=== PATIENT | male | born 1970 ===

== ENCOUNTER 2017-06-24 00:06 | Observation (INO) | payer MEDICAID ==
[2017-06-24 00:19] VITALS: BMI 60.7
[2017-06-24] MEDS ORDERED: Nitroglycerin 2% Ointment Foilpak UD TOP STA (00:57)
--- NOTE | 2017-06-24 01:05 | ED PDOC ---
Arrival/HPI - General Chief Complaint: Chest Pain Time Seen by Provider: 06/24/17 00:27 Historian: Business Account Leader (Danielle) - History of Present Illness Narrative History of Present Illness (Text): 06/24/17 00:56 47 year old, whose past medical history includes hypertension, hyperlipidemia, diabetes, and stroke, who presents to the Emergency room complaining of left sided chest pain today. Patient reports chest pain radiates to his neck. Patient notes he took his blood pressure at home, noted it to be 148/103. Patient also notes he was seen by his senior oracle soa developer yesterday. Patient states he is compliant with his medications. Patient denies any shortness of breath, cough , fever, nausea, vomiting, diarrhea, back pain, neck pain, or any other complaints. PMD: Dr. Romero Time/Duration: Other (yesterday) Symptom Course: Improving Activities at Onset: Light Context: Home Past Medical History - Provider Review Nursing Documentation Reviewed: Yes - Infectious Disease Hx of Infectious Diseases: None - Tetanus Immunization Tetanus Immunization: Unknown - Cardiac Hx Cardiac Disorders: Yes Hx Congestive Heart Failure: Yes Hx AL: Yes Hx Hypertension: Yes - Pulmonary Hx Respiratory Disorders: No Hx Respiratory Tract Infection: No - Neurological Hx Neurological Disorder: Yes HX Cerebrovascular Accident: Yes (Mar 2014) - HEENT Hx HEENT Disorder: Yes Other/Comment: limited vision related to diabetic neuropathy - Renal Hx Renal Disorder: No - Endocrine/Metabolic Hx Endocrine Disorders: Yes Hx Diabetes Mellitus Type 1: Yes - Hematological/Oncological Hx Blood Disorders: No Other/Comment: "thick blood" - Integumentary Hx Dermatological Disorder: No - Musculoskeletal/Rheumatological Hx Musculoskeletal Disorders: Yes Hx Arthritis: Yes Hx Falls: No Other/Comment: post stroke right leg unable to move below the knee pt. uses cane - Gastrointestinal Hx Gastrointestinal Disorders: No - Genitourinary/Gynecological Hx Genitourinary Disorders: No - Psychiatric Hx Psychophysiologic Disorder: No Hx Depression: No Hx Emotional Abuse: No Hx Physical Abuse: No Hx Substance Use: No - Surgical History Hx Cardiac Catheterization: Yes (Mar 2014) - Anesthesia Hx Anesthesia: Yes Hx Anesthesia Reactions: No Hx Malignant Hyperthermia: No - Suicidal Assessment Feels Threatened In Home Enviroment: No Family/Social History - Physician Review Nursing Documentation Reviewed: Yes Family/Social History: No Known Family HX Smoking Status: Never Smoked Hx Alcohol Use: No Hx Substance Use: No Allergies/Home Meds Allergies/Adverse Reactions: Allergies No Known Allergies Allergy (Verified 06/24/17 00:19) Home Medications: Home Meds Medication Instructions Recorded Confirmed amLODIPine [Norvasc] 10 mg PO DAILY 03/26/14 06/24/17 Metformin HCl [Metformin HCl] 850 tab PO DAILY 05/02/15 06/24/17 Liraglutide [Victoza 2-Mac] 1.8 mg SQ DAILY 07/28/16 06/24/17 Metoprolol Tartrate 50 mg PO BID 07/28/16 06/24/17 Pravastatin Sodium [Pravachol] 40 mg PO DAILY 07/28/16 06/24/17 Insulin Glargine,Hum.rec.anlog 20 units SQ HS 06/24/17 06/24/17 [Gabriela Esparza U-100] Review of Systems - Physician Review All systems were reviewed & negative as marked: Yes - Review of Systems Constitutional: absent: Fatigue, Fevers Respiratory: absent: SOB Cardiovascular: Chest Pain Gastrointestinal: absent: Abdominal Pain, Diarrhea, Nausea, Vomiting Physical Exam Vital Signs Reviewed: Yes Vital Signs Temp Pulse Resp BP Pulse Ox 06/24/17 05:08 74 18 95 06/24/17 00:38 98.8 F 91 H 18 150/83 97 06/24/17 00:19 98.8 F 95 H 18 150/83 97 Temperature: Afebrile Blood Pressure: Normal Pulse: Tachycardic Respiratory Rate: Normal Appearance: Positive for: Well-Appearing, Non-Toxic, Comfortable, Other (Obese male) Pain Distress: None Mental Status: Positive for: Alert and Oriented X 3 - Systems Exam Head: Present: Atraumatic, Normocephalic Pupils: Present: PERRL Extroacular Muscles: Present: EOMI Conjunctiva: Present: Normal Mouth: Present: Moist Mucous Membranes Neck: Present: Normal Range of Motion Respiratory/Chest: Present: Clear to Auscultation, Good Air Exchange. No: Respiratory Distress, Accessory Muscle Use Cardiovascular: Present: Regular Rate and Rhythm, Normal S1, S2. No: Murmurs Abdomen: Present: Normal Bowel Sounds. No: Tenderness, Distention, Peritoneal Signs Back: Present: Normal Inspection Upper Extremity: Present: Normal Inspection. No: Cyanosis, Edema Lower Extremity: Present: Normal Inspection. No: Edema Neurological: Present: GCS=15, CN II-XII Intact, Speech Normal Skin: Present: Warm, Dry, Normal Color. No: Rashes Psychiatric: Present: Alert, Oriented x 3, Normal Insight, Normal Concentration Medical Decision Making ED Course and Treatment: 06/24/17 01:09 Impression: A 47 year old male complaining of chest pain since yesterday. Plan: -- EKG -- Chest X ray -- Labs, cardiac enzymes -- Nitroglycerin -- Reassess and disposition Progress Notes: Reviewed EKG, NSR at [address]pm. LVH. Non-specific ST/T wave changes. 06/24/17 02:30 Reviewed radiology, CXR shows no acute processes. 06/24/17 03:32 Case discussed with spanish medical interpreter substation manager, who is aware and agrees with plan. 06/24/17 04:00 case d/w .Pt. placed on hospitalist service. - Lab Interpretations Lab Results: 06/24/17 01:07 06/24/17 01:07 Lab Results 06/24/17 01:07: Free T4 0.97, TSH 3rd Generation 3.28 06/24/17 01:07: Triglycerides 156, Cholesterol 122 L, LDL Cholesterol Direct 70 , HDL Cholesterol 31 06/24/17 01:07: WBC 9.0, RBC 4.65, Hgb 13.9 L, Hct 40.4 L, MCV 86.9, MCH 29.9, MCHC 34.4, RDW 13.9, Plt Count 197, MPV 10.5 06/24/17 01:07: Sodium 141, Potassium 3.2 L, Chloride 102, Carbon Dioxide 29, Anion Gap 12, BUN 15, Creatinine 0.8, Est GFR ( Amer) > 60, Est GFR (Non- Af Amer) > 60, Random Glucose 130 H, Calcium 9.0, Total Bilirubin 0.5, AST 38, ALT 51, Alkaline Phosphatase 127 H, Lactate Dehydrogenase 585, Total Creatine Kinase 213, Troponin I < 0.01, Total Protein 7.4, Albumin 3.9, Globulin 3.5, Albumin/Globulin Ratio 1.1 06/24/17 01:07: PT 11.8, INR 1.08, APTT 35.7 I have reviewed the lab results: Yes - RAD Interpretation Radiology Orders: 06/24/17 00:56 CHEST PORTABLE [RAD] Stat Courtesy Van Driver: ED Physician - EKG Interpretation Interpreted by ED Physician: Yes Type: 12 lead EKG - Medication Orders Current Medication Orders: Acetaminophen (Tylenol 325mg Tab) 650 mg PO Q6H PRN PRN Reason: Headache Last Admin: 06/24/17 06:04 Dose: 650 mg MAR Pain/Vitals Document 06/24/17 06:04 SRE (Rec: 06/24/17 06:05 SRE [id number]) Pain Reassessment Is This A Pain ReAssessment? No Sleep Is patient sleeping during reassessment? No Presence of Pain Presence of Pain Yes Pain Scale Used Pain Scale Used Numeric Location Pain Location [facility] Description Acute Intensity 7 Scale Used Numeric Amlodipine Besylate (Norvasc) 10 mg PO DAILY SWATI Apixaban (Eliquis) 5 mg PO BID SWATI PRN Reason: Protocol Aspirin (Ecotrin) 81 mg PO DAILY SWATI Atorvastatin Calcium (Lipitor) 80 mg PO DIN [facility] Sodium Chloride (Sodium Chloride 0.9%) 1,000 mls @ 100 mls/hr IV .Q10H SWATI Last Admin: 06/24/17 06:05 Dose: 100 mls/hr eMAR Start Stop Document 06/24/17 06:05 SRE (Rec: 06/24/17 06:06 SRE [id number]) Intravenous Solution Start Date 06/24/17 Start Time 06:06 Insulin Human Lispro (Humalog Low) 0 units SC ACHS SWATI PRN Reason: Protocol Metoprolol Tartrate (Lopressor) 50 mg PO BID [facility] Morphine Sulfate (Morphine) 1 mg IVP Q4H PRN PRN Reason: Pain, moderate (4-7) Nitroglycerin (Nitrostat Sl Tab) 0.4 mg SL Q5M PRN PRN Reason: Chest Pain Pantoprazole Sodium (Protonix Inj) 40 mg IVP DAILY SWATI Discontinued Medications Nitroglycerin (Nitro-Bid 2% Oint) 1 ea TOP ONCE STA Stop: 06/24/17 00:58 Last Admin: 06/24/17 01:09 Dose: 1 ea Potassium Chloride (K-Dur 20 Meq Er Tab) 20 meq PO STAT STA Stop: 06/24/17 01:37 Last Admin: 06/24/17 01:47 Dose: 20 meq - Scribe Statement Liliane Landon under supervision of Cynthia Eubanks Provider Scribe Attestation: All medical record entries made by the Scribe were at my direction and personally dictated by me. I have reviewed the chart and agree that the record accurately reflects my personal performance of the history, physical exam, medical decision making, and the department course for this patient. I have also personally directed, reviewed, and agree with the discharge instructions and disposition. Disposition/Present on Arrival - Present on Arrival Any Indicators Present on Arrival: No History of DVT/PE: No History of Uncontrolled Diabetes: No Urinary Catheter: No History of Decub. Ulcer: No History Surgical Site Infection Following: None - Disposition Have Diagnosis and Disposition been Completed?: Yes Diagnosis: Chest pain Disposition: HOSPITALIZED Disposition Time: 03:30 Patient Problems: Current Active Problems Problem Status Onset Chest pain Acute Condition: STABLE
[2017-06-24 01:27] LABS: HEMATOCRIT 40.4 % (42.0-52.0); MEAN CELL VOLUME 86.9 fl (80.0-105.0); MEAN CORPUSCULAR HEMOGLOBIN 29.9 pg (25.0-35.0); MEAN CORPUSCULAR HGB CONC 34.4 g/dl (31.0-37.0); MEAN PLATELET VOLUME 10.5 fl (7.0-11.0); RED CELL DISTRIBUTION WIDTH 13.9 % (11.5-14.5)
[2017-06-24 01:31] LABS: ALB/GLOB RATIO 1.1 (1.1-1.8); ALKALINE PHOSPHATASE 127 U/L (38-126); ALT/SGPT 51 U/L (7-56); AST/SGOT 38 U/L (17-59); BILIRUBIN,TOTAL 0.5 mg/dL (0.2-1.3); BLOOD UREA NITROGEN 15 mg/dL (7-21); CARBON DIOXIDE 29 mmol/L (21-33); CHLORIDE 102 mmol/L (98-107); GFR AFRICAN-AMERICAN > 60; GLUCOSE,RANDOM 130 mg/dL (70-110); POTASSIUM 3.2 mmol/L (3.6-5.0); SODIUM 141 mmol/L (132-148); TOTAL PROTEIN 7.4 g/dL (5.8-8.3)
[2017-06-24 01:36] LABS: INR 1.08 (0.93-1.08); PARTIAL THROMBOPLASTIN TIME 35.7 Seconds (25.1-36.5)
[2017-06-24] MEDS ORDERED: Potassium Chloride 20 mEq ER Tab PO STA (01:36)
[2017-06-24 01:43] LABS: TROPONIN I < 0.01 ng/mL
[2017-06-24] MEDS ORDERED: Morphine 2 mg/ml ISec IVP PRN (04:21)
--- NOTE | 2017-06-24 04:32 | CP.PCM.HP ---
<Lexy Rausch - Last Filed: 06/24/17 05:14> History of Present Illness - History of Present Illness History of Present Illness: CC: "My pressure was high" HPI: Patient is a 47 year old male with past medical hx of HTN, HLD, DM, paraoxysmal afib on Eliquis, gastritis, CVA in 2013 with L LE residual weakness presents to the ED for elevated blood pressure and chest pain. Patient states that he was home when he checked his blood pressure, it was noted to be 148/ 103. He also states that he was having mid sternal chest pain that radiates to the Left side of his neck. Reports that chest pain is intermittent and sharp in nature. Rates the pain a 7/10 on pain scale. States that he was feeling "hot" but denies diaphoresis. Currently reports that chest pain has resolved, and admits to having a headache and foggy vision. Denies fevers, chills, changes in hearing, palpitations, sob, abdominal pain, urinary symptoms, changes in bowel habits. Patient states that he sees Dr Finley as his mergers and acquisitions consultant, last saw him today in the office. States that last stress test was in 2015 and he was told that it was normal. ED Course: Nitro 2%, K dur 20 meq PMD: Dr Romreo Energy Broker: Dr Finley Allergies: NKDA Medications: Metoprolol 50mg BID, Amlodipine 10mg, Metformin 850mg, Pravastatin 40mg, ASA 81mg, Victoza 1.8mg, Eliquis 5mg BID, Insulin Medical Hx: HTN, HLD, DM, CVA with L LE residual weakness, paroxysmal afib on Eliquis, gastritis Surgical Hx: Denies Social Hx: Denies alcohol, tobacco, drug use; ambulates with a cane; with 3 children Family Hx: Father - Heart surgery, Prostate CA; Mother - Heart surgery, HTN, DM Present on Admission - Present on Admission Any Indicators Present on Admission: No Review of Systems - Review of Systems All systems: reviewed and no additional remarkable complaints except - Constitutional Constitutional: Headache. absent: Chills, Fever - EENT Eyes: Blurred Vision Ears: absent: Dizziness - Cardiovascular Cardiovascular: Chest Pain. absent: Dyspnea, Edema, Lightheadedness, Palpitations, Syncope - Respiratory Respiratory: absent: Cough, Dyspnea, Wheezing - Gastrointestinal Gastrointestinal: absent: Abdominal Pain, Constipation, Diarrhea, Dyspepsia, Nausea, Vomiting - Genitourinary Genitourinary: absent: Dysuria - Musculoskeletal Musculoskeletal: absent: Back Pain, Numbness, Tingling - Neurological Neurological: Headaches. absent: Abnormal Hearing, Dizziness, Tingling Past Patient History - Infectious Disease Hx of Infectious Diseases: None - Tetanus Immunizations Tetanus Immunization: Unknown - Past Medical History & Family History Past Medical History?: Yes - Past Social History Smoking Status: Never Smoked - CARDIAC Hx Cardiac Disorders: Yes Hx Congestive Heart Failure: Yes Hx Heart Attack: Yes Hx Hypertension: Yes - PULMONARY Hx Respiratory Disorders: No Hx Respiratory Tract Infection: No - NEUROLOGICAL Hx Neurological Disorder: Yes HX Cerebrovascular Accident: Yes (Mar 2014) - HEENT Hx HEENT Problems: Yes Other/Comment: limited vision related to diabetic neuropathy - RENAL Hx Chronic Kidney Disease: No - ENDOCRINE/METABOLIC Hx Endocrine Disorders: Yes Hx Diabetes Mellitus Type 1: Yes - HEMATOLOGICAL/ONCOLOGICAL Hx Blood Disorders: No Other/Comment: "thick blood" - INTEGUMENTARY Hx Dermatological Problems: No - MUSCULOSKELETAL/RHEUMATOLOGICAL Hx Musculoskeletal Disorders: Yes Hx Arthritis: Yes Hx Falls: No Other/Comment: post stroke right leg unable to move below the knee pt. uses cane - GASTROINTESTINAL Hx Gastrointestinal Disorders: No - GENITOURINARY/GYNECOLOGICAL Hx Genitourinary Disorders: No - PSYCHIATRIC Hx Psychophysiologic Disorder: No Hx Depression: No Hx Emotional Abuse: No Hx Physical Abuse: No Hx Substance Use: No - SURGICAL HISTORY Hx Cardiac Catheterization: Yes (Mar 2014) - ANESTHESIA Hx Anesthesia: Yes Hx Anesthesia Reactions: No Hx Malignant Hyperthermia: No Meds Allergies/Adverse Reactions: Allergies Allergy/AdvReac Type Severity Reaction Status Date / Time No Known Allergies Allergy Verified 06/24/17 00:19 Physical Exam - Constitutional Appears: Well, No Acute Distress Additional comments: Obese - Head Exam Head Exam: ATRAUMATIC, NORMAL INSPECTION - Eye Exam Eye Exam: EOMI, Normal appearance, PERRL Pupil Exam: NORMAL ACCOMODATION - ENT Exam ENT Exam: Mucous Membranes Moist - Neck Exam Neck exam: Positive for: Full Rom - Respiratory Exam Respiratory Exam: Clear to Auscultation Bilateral, NORMAL BREATHING PATTERN. absent: Decreased Breath Sounds, Rhonchi, Wheezes, Respiratory Distress - Cardiovascular Exam Cardiovascular Exam: REGULAR RHYTHM, +S1, +S2. absent: Tachycardia, Systolic Murmur - GI/Abdominal Exam GI & Abdominal Exam: Normal Bowel Sounds, Soft. absent: Guarding, Rebound, Rigid, Tenderness Additional comments: +Umbilical hernia - Extremities Exam Extremities exam: Positive for: calf tenderness (Negative Homans sign), normal inspection, pedal pulses present Additional comments: Left Lower Extremity Muscle Strength : 1/5 Right Lower Extremity Muscle Strength : 5/5 Upper Extremity Muscle Strength B/L : 5/5 - Back Exam Back exam: NORMAL INSPECTION - Neurological Exam Neurological exam: Alert, Oriented x3 - Psychiatric Exam Psychiatric exam: Normal Affect, Normal Mood - Skin Skin Exam: Dry, Normal Color, Warm Results - Vital Signs Recent Vital Signs: Last Vital Signs Temp 98.8 F 06/24/17 00:38 Pulse 91 H 06/24/17 00:38 Resp 18 06/24/17 00:38 BP 150/83 06/24/17 00:38 Pulse Ox 97 06/24/17 00:38 - Labs Result Diagrams: 06/24/17 01:07 06/24/17 01:07 Assessment & Plan - Assessment and Plan (Free Text) Assessment: 47 year old male with past medical hx of HTN, HLD, DM, CVA in 2013 with L LE residual weakness presents to the ED for elevated blood pressure and chest pain Plan: 1. Chest Pain r/o ACS -Stable, afebrile -Place on observation, monitor on telemetry -Currently asymptomatic -EKG on admission reviewed -Trend EKG Q8H x 2 -Initial Troponin <0.01, trend troponins Q8H x 2 -F/U am labs, TSH, free T4 -Continue ASA 81mg daily -Morphine 1mg Q4H prn pain, Nitroglycerin 0.4mg SL prn chest pain -Diet : NPO except medications -Echo ordered -Last Echo in 2013 showed LVH with normal LVEF, mild TR, no pulmonary HTN -States that he had a negative stress test last year -Supplemental O2 prn -Cardiology consulted, f/u recommendations 2. Hypokalemia -Potassium 3.2 on admission -Received K dur 20 meq in ED -Monitor CMP and replete as needed 3. History of Hypertension -Continue Metoprolol 50mg BID -Continue Norvasc 10mg daily -Monitor BPs closely 4. History of Diabetes Mellitus -Low dose Insulin sliding scale -Accuchecks ACHS -F/U hgA1C -Will hold Metformin at this time 5. History of Dyslipidemia -Lipitor 80mg daily -F/U lipid panel 6. History of Paraoxysmal Afib -Currently in NSR -Continue Eliquis 5mg BID 7. History of CVA with Left LE residual weakness -Continue ASA 81mg daily -Eliquis 5mg BID -Fall precautions 8. B/L Calf tenderness -LE venous dopplers ordered 9. Morbid Obesity -Advise weight loss GI/DVT ppx -Protonix 40mg IVP daily -Eliquis 5mg BID <Areli LUCIA,Arben - Last Filed: 06/24/17 08:52> Results - Vital Signs Recent Vital Signs: Last Vital Signs Temp 98.4 F 06/24/17 07:14 Pulse 74 06/24/17 07:14 Resp 20 06/24/17 08:25 BP 103/59 L 06/24/17 07:14 Pulse Ox 94 L 06/24/17 07:14 - Labs Result Diagrams: 06/24/17 08:30 06/24/17 01:07 Labs: Laboratory Results - last 24 hr 06/24/17 08:30 WBC 7.8 RBC 4.55 Hgb 13.4 L Hct 39.4 L MCV 86.6 MCH 29.5 MCHC 34.0 RDW 13.7 Plt Count 182 MPV 10.2 Gran % 59.9 Lymph % (Auto) 25.0 [place] % (Auto) 13.3 H Eos % (Auto) 1.5 Baso % (Auto) 0.3 Gran # 4.65 Lymph # 1.9 [place] # 1.0 H Eos # 0.1 Baso # 0.02 Attending/Attestation - Attestation I have personally seen and examined this patient.: Yes I have fully participated in the care of the patient.: Yes I have reviewed all pertinent clinical information: Yes Notes (Text): -I agree with the above H&P completed by the resident physician.
[2017-06-24 05:01] LABS: CHOLESTEROL 122 mg/dL (130-200)
[2017-06-24 05:03] LABS: FREE T4 0.97 ng/dL (0.78-2.19)
[2017-06-24 05:17] LABS: THYROID STIMULATING HORMONE 3.28 mIU/mL (0.46-4.68)
[2017-06-24] MEDS ORDERED: Sodium Chloride 0.9% 1,000 ML IV SCH (05:30)
[2017-06-24 07:15] VITALS: O2SAT 94
[2017-06-24] MEDS: Insulin Lispro (humaLOG) LOW Coverage SC SCH ×3 (08:23→16:58)
[2017-06-24 08:37] LABS: BASO # 0.02 K/mm3 (0.0-2.0); BASO % 0.3 % (0.0-3.0); EOS # 0.1 (0.0-0.7); EOS % 1.5 % (1.5-5.0); GRAN # 4.65 (1.4-6.5); GRAN % 59.9 % (50.0-68.0); HEMATOCRIT 39.4 % (42.0-52.0); LYMPH # 1.9 (1.2-3.4); MEAN CELL VOLUME 86.6 fl (80.0-105.0); MEAN CORPUSCULAR HEMOGLOBIN 29.5 pg (25.0-35.0); MEAN PLATELET VOLUME 10.2 fl (7.0-11.0); MONO % 13.3 % (1.0-6.0); RED CELL DISTRIBUTION WIDTH 13.7 % (11.5-14.5); WHITE BLOOD COUNT 7.8 10^3/ul (4.5-11.0)
--- NOTE | 2017-06-24 08:44 | RAD ---
HISTORY: chest pain COMPARISON: 07/28/2016 FINDINGS: LUNGS: The lungs are well inflated and clear. There is mild pulmonary venous congestion. PLEURA: No significant pleural effusion identified, no pneumothorax apparent. CARDIOVASCULAR: There is persistent mild cardiomegaly. OSSEOUS STRUCTURES: No significant abnormalities. VISUALIZED UPPER ABDOMEN: Normal. OTHER FINDINGS: None. IMPRESSION: No active pulmonary disease. Persistent mild cardiomegaly and pulmonary venous congestion
[2017-06-24 08:57] LABS: ALB/GLOB RATIO 1.1 (1.1-1.8); ALKALINE PHOSPHATASE 106 U/L (38-126); ALT/SGPT 42 U/L (7-56); AST/SGOT 30 U/L (17-59); BILIRUBIN,TOTAL 0.6 mg/dL (0.2-1.3); BLOOD UREA NITROGEN 13 mg/dL (7-21); CALCIUM 8.6 mg/dL (8.4-10.5); CARBON DIOXIDE 29 mmol/L (21-33); CHLORIDE 104 mmol/L (98-107); GFR AFRICAN-AMERICAN > 60; GLUCOSE,RANDOM 137 mg/dL (70-110); MAGNESIUM 1.9 mg/dL (1.7-2.2); PHOSPHOROUS 3.6 mg/dL (2.5-4.5); POTASSIUM 3.1 mmol/L (3.6-5.0); SODIUM 140 mmol/L (132-148); TOTAL PROTEIN 6.8 g/dL (5.8-8.3)
[2017-06-24 08:59] LABS: TROPONIN I < 0.01 ng/mL
[2017-06-24] MEDS ORDERED: Potassium Chloride 20 mEq ER Tab PO ONE (09:02)
[2017-06-24] MEDS ORDERED: Enoxaparin 40 mg Syringe SC SCH (10:00)
[2017-06-24] MEDS ORDERED: Iodixanol 320 mg/ml 150 ml Bottle IV ONE (12:55)
--- NOTE | 2017-06-24 13:02 | CARD ---
APPROVED REPORT EXAM: Two-dimensional and M-mode echocardiogram with Doppler and color Doppler. INDICATION Chest Pain 2D DIMENSIONS IVSd1.6 (0.7-1.1cm)LVDd4.4 (3.9-5.9cm) PWd1.4 (0.7-1.1cm)LVDs3.2 (2.5-4.0cm) FS (%) 27.8 %LVEF (%)54.1 (>50%) M-Mode DIMENSIONS Aortic Root4.00 (2.2-3.7cm)Aortic Cusp Exc.2.20 (1.5-2.0cm) Aortic Valve AoV Peak Equbsgcm426.0cm/Blade Peak GR.7mmHg Mitral Valve E/A ratio0.0 TDI E/Lateral E'0.0E/Medial E'0.0 Pulmonary Valve PV Peak Prdfgnzz218.0cm/sPV Peak Grad.4mmHg Tricuspid Valve TR Peak [id number]/sRAP [id number] Peak Gr.16mmHg [id number] LEFT VENTRICLE The left ventricle is normal size. There is mild concentric left ventricular hypertrophy. The left ventricular function is normal. The left ventricular ejection fraction is within the normal range. There is normal LV segmental wall motion. Transmitral Doppler flow pattern is Grade I-abnormal relaxation pattern. RIGHT VENTRICLE The right ventricle is normal size. There is normal right ventricular wall thickness. The right ventricular systolic function is normal. ATRIA The left atrium size is normal. The right atrium size is normal. AORTIC VALVE The aortic valve is normal in structure. No aortic regurgitation is present. MITRAL VALVE The mitral valve is normal in structure. There is no mitral valve regurgitation noted. TRICUSPID VALVE The tricuspid valve is normal in structure. There is no pulmonary hypertension. GREAT VESSELS The aortic root is mildly enlarged. The IVC is normal in size and collapses >50% with inspiration. <Conclusion> The left ventricle is normal size. There is mild concentric left ventricular hypertrophy. The left ventricular function is normal. The left ventricular ejection fraction is within the normal range. There is normal LV segmental wall motion. Transmitral Doppler flow pattern is Grade I-abnormal relaxation pattern. a PFO is noted
--- NOTE | 2017-06-24 14:27 | CT ---
PROCEDURE: CT Chest with contrast (Pulmonary Angiogram) HISTORY: R/O PE COMPARISON: None available. TECHNIQUE: Axial computed tomography images were obtained of the chest in the pulmonary arterial phase of enhancement. Coronal and sagittal reformatted images were created and reviewed. Intravenous contrast dose: 150 cc of Visipaque Radiation dose: Total exam DLP = 857 mGy-cm. This CT exam was performed using one or more of the following dose reduction techniques: Automated exposure control, adjustment of the mA and/or kV according to patient size, and/or use of iterative reconstruction technique. FINDINGS: PULMONARY ARTERIES: Unremarkable. No pulmonary embolism. AORTA: No acute findings. No thoracic aortic aneurysm. LUNGS: Unremarkable. No nodule, mass or pulmonary consolidation. PLEURAL SPACES: Unremarkable. No effusion or pneuomothorax. HEART: Unremarkable. No cardiomegaly. No significant pericardial effusion. LYMPH NODES: No lymphadenopathy. BONES, CHEST WALL: Unremarkable. No fracture or destructive lesion OTHER FINDINGS: There is severe fatty infiltration of the liver IMPRESSION: No evidence of pulmonary embolus. Severe fatty infiltration of the liver
--- NOTE | 2017-06-24 15:38 | US ---
HISTORY: Leg pain and swelling. Evaluate for DVT PHYSICIAN(S): Trell Finney MD. TECHNIQUE: Duplex sonography and color-flow Doppler with graded compression were used to evaluate the deep venous systems of both lower extremities. FINDINGS: There appears to be some adherent chronic nonocclusive thrombus in the right common femoral vein. The right femoral vein, proximal right profunda femoral vein, right popliteal vein, and visualized right tibial veins are normal and compressible. 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
[2017-06-24 17:26] VITALS: BP 132/85
[2017-06-24 17:44] VITALS: PULSE 67; RESP 16; TEMP 98.6
--- NOTE | 2017-06-24 21:10 | CP.PCM.DIS ---
<Jorge Bedolla - Last Filed: 06/25/17 03:23> Provider - Provider Date of Admission: 06/24/17 03:25 Attending physician: Tamara Mays MD Primary care physician: NO PRIMARY CARE PROVIDER Time Spent in preparation of Discharge (in minutes): 45 Hospital Course - Lab Results Lab Results: Most Recent Lab Values WBC 7.8 10^3/ul (4.5-11.0) 06/24/17 08:30 RBC 4.55 10^6/uL (3.5-6.1) 06/24/17 08:30 Hgb 13.4 g/dL (14.0-18.0) L 06/24/17 08:30 Hct 39.4 % (42.0-52.0) L 06/24/17 08:30 MCV 86.6 fl (80.0-105.0) 06/24/17 08:30 MCH 29.5 pg (25.0-35.0) 06/24/17 08:30 MCHC 34.0 g/dl (31.0-37.0) 06/24/17 08:30 RDW 13.7 % (11.5-14.5) 06/24/17 08:30 Plt Count 182 10^3/uL (120.0-450.0) 06/24/17 08:30 MPV 10.2 fl (7.0-11.0) 06/24/17 08:30 Gran % 59.9 % (50.0-68.0) 06/24/17 08:30 Lymph % (Auto) 25.0 % (22.0-35.0) 06/24/17 08:30 [place] % (Auto) 13.3 % (1.0-6.0) H 06/24/17 08:30 Eos % (Auto) 1.5 % (1.5-5.0) 06/24/17 08:30 Baso % (Auto) 0.3 % (0.0-3.0) 06/24/17 08:30 Gran # 4.65 (1.4-6.5) 06/24/17 08:30 Lymph # 1.9 (1.2-3.4) 06/24/17 08:30 [place] # 1.0 (0.1-0.6) H 06/24/17 08:30 Eos # 0.1 (0.0-0.7) 06/24/17 08:30 Baso # 0.02 K/mm3 (0.0-2.0) 06/24/17 08:30 PT 11.8 SECONDS (9.4-12.5) 06/24/17 01:07 INR 1.08 (0.93-1.08) 06/24/17 01:07 APTT 35.7 Seconds (25.1-36.5) 06/24/17 01:07 Sodium 140 mmol/L (132-148) 06/24/17 08:30 Potassium 3.1 mmol/L (3.6-5.0) L 06/24/17 08:30 Chloride 104 mmol/L (98-107) 06/24/17 08:30 Carbon Dioxide 29 mmol/L (21-33) 06/24/17 08:30 Anion Gap 10 (10-20) 06/24/17 08:30 BUN 13 mg/dL (7-21) 06/24/17 08:30 Creatinine 0.8 mg/dl (0.8-1.5) 06/24/17 08:30 Est GFR ( Amer) > 60 06/24/17 08:30 Est GFR (Non-Af Amer) > 60 06/24/17 08:30 Random Glucose 137 mg/dL (70-110) H 06/24/17 08:30 Hemoglobin A1c 7.7 % (4.2-6.5) H D 06/24/17 01:07 Calcium 8.6 mg/dL (8.4-10.5) 06/24/17 08:30 Phosphorus 3.6 mg/dL (2.5-4.5) 06/24/17 08:30 Magnesium 1.9 mg/dL (1.7-2.2) 06/24/17 08:30 Total Bilirubin 0.6 mg/dL (0.2-1.3) 06/24/17 08:30 AST 30 U/L (17-59) 06/24/17 08:30 ALT 42 U/L (7-56) 06/24/17 08:30 Alkaline Phosphatase 106 U/L (38-126) 06/24/17 08:30 Lactate Dehydrogenase 585 U/L (333-699) 06/24/17 01:07 Total Creatine Kinase 213 U/L (35-230) 06/24/17 01:07 Troponin I < 0.01 ng/mL 06/24/17 16:50 Total Protein 6.8 g/dL (5.8-8.3) 06/24/17 08:30 Albumin 3.6 g/dL (3.0-4.8) 06/24/17 08:30 Globulin 3.2 gm/dL 06/24/17 08:30 Albumin/Globulin Ratio 1.1 (1.1-1.8) 06/24/17 08:30 Triglycerides 156 mg/dL (35-160) 06/24/17 01:07 Cholesterol 122 mg/dL (130-200) L 06/24/17 01:07 LDL Cholesterol Direct 70 mg/dL (0-129) 06/24/17 01:07 HDL Cholesterol 31 mg/dL (29-60) 06/24/17 01:07 Free T4 0.97 ng/dL (0.78-2.19) 06/24/17 01:07 TSH 3rd Generation 3.28 mIU/mL (0.46-4.68) 06/24/17 01:07 - Hospital Course Hospital Course: Mr. 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 Patient states that he was home when he checked his blood pressure, it was noted to be 148/ 103. He also states that he was having mid sternal chest pain that radiates to the Left side of his neck. Reports that chest pain is intermittent and sharp in nature. Rates the pain a 7/10 on pain scale. States that he was feeling "hot" but denies diaphoresis. Currently reports that chest pain has resolved, and admits to having a headache and foggy vision. Denies fevers, chills, changes in hearing, palpitations, sob, abdominal pain, urinary symptoms, changes in bowel habits. 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 States that last stress test was in 2016 and he was told that it was normal. In ED , pt was given Nitro 2%, K dur Patient was tarnsferred to telemetry for monitoring. Pt states that he has been on the Eliquis for 3-4 months but unsure if he had a clot at that time. HE states that in 2005, He had an GA for which he received a cath in [place]. in @014, he had a CVA in [place] and thinks they put a catheter of some sort in his R groin but cannot remember if it was to dissolve a clot in his legs, heart or brain. Cardiology was consulted. Troponin negative x3. Echo was done and showed EF 54%, with no PFO to explained the CVA at such a young age. LE US was done and showed chornic, adherent non-occlusive thrombus in R common femoral vein. CTA Chest was done and showed no evidence of pulm embolus, but was +for severe fatty infiltration of liver. Per Cardio recs, pt to continue ASA , Lipitor, and Lopressor. Patient will follow up with Dr. Finley and Dr. Romero. Will take Eliquis 10mg BID for 7 days then continue his regimen of 5mg BID. will continue Norvasc 10mg daily and Metoprolol 50mg BID. Will start HYdralazine PRN if SBP >140. will hold metformin for 2 days to avoid added injury to contrast -induced kidney injury, then continue it as normal. Will also plan for outpatient sleep study. Patient was educated about diet modifications and need for lifestyle changes/ weight loss however patient fears that when he walks, he gets hypertensive. - Date & Time of H&P Date of H&P: 06/24/17 Time of H&P: 04:24 Discharge Exam - Head Exam Head Exam: ATRAUMATIC, NORMAL INSPECTION - Eye Exam Eye Exam: EOMI, Normal appearance, PERRL Pupil Exam: NORMAL ACCOMODATION - ENT Exam ENT Exam: Mucous Membranes Moist - Neck Exam Neck exam: Normal Inspection - Respiratory Exam Respiratory Exam: Clear to PA & Lateral, NORMAL BREATHING PATTERN. absent: Rhonchi, Wheezes, Respiratory Distress - Cardiovascular Exam Cardiovascular Exam: RRR, +S1, +S2. absent: Gallop, JVD, Rubs, Systolic Murmur - GI/Abdominal Exam GI & Abdominal Exam: Normal Bowel Sounds, Soft, Unremarkable. absent: Distended , Tenderness Additional comments: morbidly obese body habitus - Extremities Exam Extremities exam: full ROM, pedal edema, pedal pulses present - Back Exam Back exam: NORMAL INSPECTION - Neurological Exam Neurological exam: Alert, Oriented x3 - Psychiatric Exam Psychiatric exam: Normal Affect, Normal Mood - Skin Skin Exam: Dry, Normal Color, Warm - Additional Findings Additional findings: Slovak speaking only Discharge Plan - Discharge Medications Prescriptions: Apixaban [Eliquis] 10 mg PO BID #14 tab hydrALAZINE [Apresoline] 25 mg PO BID PRN #30 tab PRN Reason: Systolic Blood Pressure - Follow Up Plan Condition: STABLE Disposition: HOME/ ROUTINE Instructions: Angina (DC), Chest Pain (DC), Sleep Apnea (DC), Low Fat Diet (DC) , Heart Healthy Diet (DC), Cholesterol and Your Health (GEN), Lipid Profile (GEN ) Additional Instructions: - please take Eliquis 10mg twice daily for 7 days then take 5mg twice daily moving forward for your chronic clot - please continue your Norvasc 10mg daily and Metoprolol 50mg twice daily - please start taking Hydralazine 25mg BID PRN if SBP > 140 - DO NOT take Metformin for 2 days then restart as normal - please follow up with Dr. Finley within 2 weeks who will adjust your meds. - please follow up with an outpatient sleep study Referrals: Regan Finley MD [Medical Doctor] - PCP,NO [Primary Care Provider] - <Tamara Mays - Last Filed: 06/25/17 15:55> Provider - Provider Date of Admission: 06/24/17 03:25 Attending physician: Tamara Mays MD Primary care physician: NO PRIMARY CARE PROVIDER Hospital Course - Lab Results Lab Results: Most Recent Lab Values WBC 7.8 10^3/ul (4.5-11.0) 06/24/17 08:30 RBC 4.55 10^6/uL (3.5-6.1) 06/24/17 08:30 Hgb 13.4 g/dL (14.0-18.0) L 06/24/17 08:30 Hct 39.4 % (42.0-52.0) L 06/24/17 08:30 MCV 86.6 fl (80.0-105.0) 06/24/17 08:30 MCH 29.5 pg (25.0-35.0) 06/24/17 08:30 MCHC 34.0 g/dl (31.0-37.0) 06/24/17 08:30 RDW 13.7 % (11.5-14.5) 06/24/17 08:30 Plt Count 182 10^3/uL (120.0-450.0) 06/24/17 08:30 MPV 10.2 fl (7.0-11.0) 06/24/17 08:30 Gran % 59.9 % (50.0-68.0) 06/24/17 08:30 Lymph % (Auto) 25.0 % (22.0-35.0) 06/24/17 08:30 [place] % (Auto) 13.3 % (1.0-6.0) H 06/24/17 08:30 Eos % (Auto) 1.5 % (1.5-5.0) 06/24/17 08:30 Baso % (Auto) 0.3 % (0.0-3.0) 06/24/17 08:30 Gran # 4.65 (1.4-6.5) 06/24/17 08:30 Lymph # 1.9 (1.2-3.4) 06/24/17 08:30 [place] # 1.0 (0.1-0.6) H 06/24/17 08:30 Eos # 0.1 (0.0-0.7) 06/24/17 08:30 Baso # 0.02 K/mm3 (0.0-2.0) 06/24/17 08:30 PT 11.8 SECONDS (9.4-12.5) 06/24/17 01:07 INR 1.08 (0.93-1.08) 06/24/17 01:07 APTT 35.7 Seconds (25.1-36.5) 06/24/17 01:07 Sodium 140 mmol/L (132-148) 06/24/17 08:30 Potassium 3.1 mmol/L (3.6-5.0) L 06/24/17 08:30 Chloride 104 mmol/L (98-107) 06/24/17 08:30 Carbon Dioxide 29 mmol/L (21-33) 06/24/17 08:30 Anion Gap 10 (10-20) 06/24/17 08:30 BUN 13 mg/dL (7-21) 06/24/17 08:30 Creatinine 0.8 mg/dl (0.8-1.5) 06/24/17 08:30 Est GFR ( Amer) > 60 06/24/17 08:30 Est GFR (Non-Af Amer) > 60 06/24/17 08:30 Random Glucose 137 mg/dL (70-110) H 06/24/17 08:30 Hemoglobin A1c 7.7 % (4.2-6.5) H D 06/24/17 01:07 Calcium 8.6 mg/dL (8.4-10.5) 06/24/17 08:30 Phosphorus 3.6 mg/dL (2.5-4.5) 06/24/17 08:30 Magnesium 1.9 mg/dL (1.7-2.2) 06/24/17 08:30 Total Bilirubin 0.6 mg/dL (0.2-1.3) 06/24/17 08:30 AST 30 U/L (17-59) 06/24/17 08:30 ALT 42 U/L (7-56) 06/24/17 08:30 Alkaline Phosphatase 106 U/L (38-126) 06/24/17 08:30 Lactate Dehydrogenase 585 U/L (333-699) 06/24/17 01:07 Total Creatine Kinase 213 U/L (35-230) 06/24/17 01:07 Troponin I < 0.01 ng/mL 06/24/17 16:50 Total Protein 6.8 g/dL (5.8-8.3) 06/24/17 08:30 Albumin 3.6 g/dL (3.0-4.8) 06/24/17 08:30 Globulin 3.2 gm/dL 06/24/17 08:30 Albumin/Globulin Ratio 1.1 (1.1-1.8) 06/24/17 08:30 Triglycerides 156 mg/dL (35-160) 06/24/17 01:07 Cholesterol 122 mg/dL (130-200) L 06/24/17 01:07 LDL Cholesterol Direct 70 mg/dL (0-129) 06/24/17 01:07 HDL Cholesterol 31 mg/dL (29-60) 06/24/17 01:07 Free T4 0.97 ng/dL (0.78-2.19) 06/24/17 01:07 TSH 3rd Generation 3.28 mIU/mL (0.46-4.68) 06/24/17 01:07 Attending/Attestation - Attestation I have personally seen and examined this patient.: Yes I have fully participated in the care of the patient.: Yes I have reviewed all pertinent clinical information, including history, physical exam and plan: Yes Notes (Text): 06/25/17 15:51 Attending note; Patient seen and examined with the resident. Patient is a 47-year-old morbidly obese male with a history of previous CVA, ? GA is admitted with high blood pressure and chest pain. Cardiac enzymes negative. Echocardiogram normal. Patient was evaluated by cardiology Dr. powell. Case discussed with patient's lumber piler Dr. Neri in detail. Patient had a recent stress test in August 2016 which was normal. Recent echo was normal. Doppler ultrasound showed chronic nonocclusive right femoral vein thrombus. Currently on eliquis 5 mg po bid. dosage increased to 10 twice a day for 7 days and then 5 twice a day. Repeat ultrasound in one week. CT angios is negative for PE. Obesity; weight reduction suggested. Advised to follow-up with outpatient PT. Hypertension; patient has labile blood pressure. Continue metoprolol and Norvasc. Hydralazine added. We will follow up with Dr. Finley on Wednesday to adjust medications. Patient is advised to take all his prescriptions to lumber piler office to review and adjust medications. Advised to stop metformin for 48 hours since he had CT angiogram. Upon discharge the patient will follow-up with PMD . Diagnosis; Morbid obesity Hypertension History of CVA Right common femoral DVT/old
--- NOTE | 2017-06-24 21:38 | CON ---
CARDIOLOGY CONSULTATION DATE: REASON FOR CONSULTATION: Chest pain. HISTORY OF PRESENT ILLNESS: The patient is a 47 years old, morbidly obese male, originally from [place], who has a history of hypertension, hyperlipidemia, diabetes mellitus, Paroxysmal A Fib, and history of stroke with residual left leg weakness. The patient presented because of left-sided chest pain radiating to the neck. The patient is unaware of any prior cardiac history. SOCIAL HISTORY: Nonsmoker. MEDICATIONS: Aspirin 81 mg once a day, Eliquis 5 mg twice a day, Lipitor 80 mg once a day, Lopressor 50 mg twice a day, Norvasc at 10 mg once a day, and Protonix 40 mg PO once a day. REVIEW OF SYSTEMS: No dizziness or syncope. No fever or chills. PHYSICAL EXAMINATION: GENERAL: The patient is a middle-aged male, who does not appear to be in any acute distress. VITAL SIGNS: Blood pressure 103/59, heart rate 74, temperature 98.4, and respirations 20. HEENT: Normocephalic. CHEST : Clear. HEART: S1 and S2 regular. EXTREMITIES: Trace leg edema. No calf tenderness. LABORATORY DATA: PT, PTT and INR are within normal limits. SMA-7 today is within normal limits except for potassium of 3.1 and glucose of 137. Two sets of troponins are negative. Total cholesterol is below normal at 122. EKG revealed sinus rhythm, LVH by voltage, heart rate 71. Chest x-ray revealed borderline cardiomegaly and mild vascular congestion. ASSESSMENT: 1. Chest pain, myocardial infarction is ruled out. 2. Rule out pulmonary infarction. A preliminary report of venous Doppler of the lower extremity was positive for nonocclusive deep venous thrombosis in the popliteal vein according to the public health technician. 3. Hypokalemia. 4. Moderate obesity. 5. History of cerebrovascular accident. 6. History of Paroxysmal A Fib. RECOMMENDATIONS: The patient did receive K-Dur total of 60 mEq orally today. Continue aspirin, Eliquis, Lipitor, and Lopressor. Obtain stat CT angio of the chest to rule out pulmonary embolus. I will review the echocardiographic study performed today. Brendon Cruz MD [facility]
--- NOTE | 2017-06-24 21:44 | CARD ---
APPROVED REPORT EKG Measurement Heart [id number] <Conclusion> Sinus rhythm with premature atrial complexes Voltage criteria for left ventricular hypertrophy Abnormal ECG
[2017-06-24] MEDS ORDERED: Insulin Detemir 100 units/ml Vial (Levemir) SC SCH (22:00)
--- NOTE | 2017-06-24 22:02 | CARD ---
APPROVED REPORT EKG Measurement Heart [id number] [place] 172P30 [id number] <Conclusion> Sinus rhythm with marked sinus arrhythmia Voltage criteria for left ventricular hypertrophy Abnormal ECG
--- NOTE | 2017-06-24 22:08 | CARD ---
APPROVED REPORT EKG Measurement Heart [id number] [place] 162P27 [id number] <Conclusion> Sinus rhythm with premature supraventricular complexes Voltage criteria for left ventricular hypertrophy Prolonged QT Abnormal ECG
== END 2017-06-24 18:16 | disposition home or self-care (01) ==
LOC: ED 00:06 → ERH 03:25 → 3RSO 05:33
PROVIDERS: ADMIT Internal Medicine; ATTEND Internal Medicine
DX: R07.9 Chest pain, unspecified (principal); E10.40 Type 1 diabetes mellitus with diabetic neuropathy, unspecified; E78.5 Hyperlipidemia, unspecified; E87.6 Hypokalemia; I11.0 Hypertensive heart disease with heart failure; I50.9 Heart failure, unspecified; I48.0 Paroxysmal atrial fibrillation; Z86.73 Personal history of transient ischemic attack (TIA), and cerebral infarction without residual deficits; I25.2 Old myocardial infarction; I82.511 Chronic embolism and thrombosis of right femoral vein; I82.531 Chronic embolism and thrombosis of right popliteal vein; K76.0 Fatty (change of) liver, not elsewhere classified; Z79.899 Other long term (current) drug therapy; Z79.4 Long term (current) use of insulin; Z80.42 Family history of malignant neoplasm of prostate; Z82.49 Family history of ischemic heart disease and other diseases of the circulatory system; Z83.3 Family history of diabetes mellitus; M19.90 Unspecified osteoarthritis, unspecified site; K42.9 Umbilical hernia without obstruction or gangrene; E66.01 Morbid (severe) obesity due to excess calories; Z68.44 Body mass index [BMI] 60.0-69.9, adult
CPT/HCPCS: 71010; 71275; 80053; 80061; 82550; 83036; 83615; 83735; 84100; 84439; 84443; 84484; 85025; 85027; 85610; 85730; 93005; 93306; 93970; 99285; C9113; G0378; J7040

== ENCOUNTER 2018-02-07 15:17 | Emergency (ER) | payer MEDICARE, MEDICAID ==
[2018-02-07 16:18] VITALS: RESP 18
[2018-02-07 16:22] VITALS: BMI 58.8
[2018-02-07 17:38] LABS: BASO # 0.02 K/mm3 (0.0-2.0); BASO % 0.2 % (0.0-3.0); EOS # 0.2 (0.0-0.7); EOS % 1.8 % (1.5-5.0); GRAN # 6.08 (1.4-6.5); GRAN % 63.8 % (50.0-68.0); HEMOGLOBIN 14.2 g/dL (14.0-18.0); LYMPH # 2.3 (1.2-3.4); LYMPH % 23.8 % (22.0-35.0); MEAN CORPUSCULAR HEMOGLOBIN 28.8 pg (25.0-35.0); MEAN CORPUSCULAR HGB CONC 33.9 g/dl (31.0-37.0); MEAN PLATELET VOLUME 10.6 fl (7.0-11.0); MONO % 10.4 % (1.0-6.0); RBC 4.93 10^6/uL (3.5-6.1); RED CELL DISTRIBUTION WIDTH 13.4 % (11.5-14.5); WHITE BLOOD COUNT 9.5 10^3/ul (4.5-11.0)
[2018-02-07 17:39] LABS: CALCIUM 8.5 mg/dL (8.4-10.5); GFR AFRICAN-AMERICAN > 60; GFR NON-AFRICAN AMERICAN > 60
[2018-02-07 17:41] LABS: ALB/GLOB RATIO 1.1 (1.1-1.8); ALT/SGPT 30 U/L (7-56); AST/SGOT 30 U/L (17-59); BLOOD UREA NITROGEN 12 mg/dL (7-21)
--- NOTE | 2018-02-07 17:58 | ED PDOC ---
Arrival/HPI - General Chief Complaint: Lower Extremity Problem/Injury Time Seen by Provider: 02/07/18 16:19 Historian: Patient - History of Present Illness Narrative History of Present Illness (Text): 02/07/18 17:53 Pt is a 47 yr old male with PMH of DMII, CVA (2013), previous DVT left LE, and chronic low back pain, who presents to the ED for bilateral LE pain and swelling x 4 days. Reports the pain is worse on standing and sitting and is only from the knees down to mid foot. Denies fever, chills, shortness of breath , chest pain, trauma, recent travel or illness, nausea, vomiting, diarrhea, or any other complaint. Time/Duration: < week Symptom Onset: Gradual Symptom Course: Unchanged Quality: Aching, Pressure Severity Level: 5 Activities at Onset: Rest Context: Home Past Medical History - Provider Review Nursing Documentation Reviewed: Yes - Travel History Have you recently traveled outside [place] w/in the past 3 mons?: No - Infectious Disease Hx of Infectious Diseases: None - Tetanus Immunization Tetanus Immunization: Unknown - Cardiac Hx Cardiac Disorders: Yes ([place]) Hx Congestive Heart Failure: Yes Hx Hypertension: Yes - Pulmonary Hx Respiratory Disorders: No Hx Respiratory Tract Infection: No - Neurological Hx Neurological Disorder: Yes HX Cerebrovascular Accident: Yes - HEENT Hx HEENT Disorder: Yes Other/Comment: limited vision related to diabetic neuropathy - Renal Hx Renal Disorder: No - Endocrine/Metabolic Hx Endocrine Disorders: Yes Hx Diabetes Mellitus Type 1: Yes - Hematological/Oncological Hx Blood Disorders: No Other/Comment: "thick blood" - Integumentary Hx Dermatological Disorder: No - Musculoskeletal/Rheumatological Hx Falls: No - Gastrointestinal Hx Gastrointestinal Disorders: No - Genitourinary/Gynecological Hx Genitourinary Disorders: No - Psychiatric Hx Psychophysiologic Disorder: No Hx Depression: No Hx Emotional Abuse: No Hx Physical Abuse: No Hx Substance Use: No - Surgical History Hx Cardiac Catheterization: Yes (Mar 2014) - Anesthesia Hx Anesthesia: Yes Hx Anesthesia Reactions: No Hx Malignant Hyperthermia: No - Suicidal Assessment Feels Threatened In Home Enviroment: No Family/Social History - Physician Review Nursing Documentation Reviewed: Yes Family/Social History: No Known Family HX Smoking Status: Unknown If Ever Smoked Hx Alcohol Use: No Hx Substance Use: No Allergies/Home Meds Allergies/Adverse Reactions: Allergies No Known Allergies Allergy (Verified 02/07/18 16:22) Home Medications: Home Meds Medication Instructions Recorded Confirmed amLODIPine [Norvasc] 10 mg PO DAILY 03/26/14 02/07/18 Metformin HCl 850 tab PO DAILY 05/02/15 02/07/18 Liraglutide [Victoza 2-Mac] 1.8 mg SQ DAILY 07/28/16 02/07/18 Metoprolol Tartrate 50 mg PO BID 07/28/16 02/07/18 Pravastatin Sodium [Pravachol] 40 mg PO DAILY 07/28/16 02/07/18 Insulin Glargine,Hum.rec.anlog 20 units SQ HS 06/24/17 02/07/18 [Royerbridgette Ceciliadominguez U-100] Review of Systems - Review of Systems Systems not reviewed;Unavailable: Language Barrier Constitutional: Normal. absent: Fatigue, Weight Change, Fevers Eyes: Normal ENT: Normal Respiratory: Normal. absent: SOB Cardiovascular: Normal. absent: Chest Pain Gastrointestinal: Normal. absent: Abdominal Pain Genitourinary Male: Normal. absent: Dysuria Musculoskeletal: Normal, Arthralgias, Back Pain, Joint Swelling Skin: Normal Neurological: Normal, Headache Endocrine: Normal. absent: Diaphoresis Hemo/Lymphatic: Normal Psychiatric: Normal Physical Exam Vital Signs Reviewed: Yes Vital Signs Temp Pulse Resp BP Pulse Ox 02/07/18 20:07 97.7 F 70 18 156/94 H 96 02/07/18 15:18 98 F 77 18 162/107 H 95 Temperature: Afebrile Blood Pressure: Hypertensive Pulse: Regular Respiratory Rate: Normal Appearance: Positive for: Well-Appearing, Non-Toxic, Comfortable Pain Distress: Mild Mental Status: Positive for: Alert and Oriented X 3 - Systems Exam Head: Present: Atraumatic, Normocephalic Pupils: Present: PERRL Extroacular Muscles: Present: EOMI Conjunctiva: Present: Normal Mouth: Present: Moist Mucous Membranes Neck: Present: Normal Range of Motion Respiratory/Chest: Present: Clear to Auscultation, Good Air Exchange. No: Respiratory Distress, Accessory Muscle Use Cardiovascular: Present: Regular Rate and Rhythm, Normal S1, S2. No: Murmurs Abdomen: Present: Normal Bowel Sounds. No: Tenderness, Distention, Peritoneal Signs Back: Present: Normal Inspection Upper Extremity: Present: Normal Inspection, Normal ROM, NORMAL PULSES, Neurovascularly Intact, Capillary Refill < 2s. No: Cyanosis, Edema, Tenderness Lower Extremity: Present: Normal Inspection, CALF TENDERNESS, NORMAL PULSES, Normal ROM, Tenderness, Neurovascularly Intact, Capillary Refill < 2 s. No: Edema, Serdick's Sign, Swelling, Erythema, Deformity, Temperature Abnormalties Neurological: Present: GCS=15, CN II-XII Intact, Speech Normal, Motor Func Grossly Intact, Normal Sensory Function, Normal Cerebellar Funct, Gait Normal Skin: Present: Warm, Dry, Normal Color. No: Rashes Psychiatric: Present: Alert, Oriented x 3, Normal Insight, Normal Concentration Medical Decision Making ED Course and Treatment: 02/07/18 17:59 Impression Pt is a 47 yr old male with PMH of DMII, CVA (2013), previous DVT left LE, and chronic low back pain, who presents to the ED for bilateral LE pain and swelling x 4 days Bilateral calf tenderness, (-) Sedrick's, SILT and motor function 5/5, pulses 2+ bilateral Working Dx: DVT vs Lumbar radiculopathy vs diabetic neuropathy Plan Bilateral LE doppler to r/o DVT Labs, UA, EKG assess and dispo Progress note 02/07/18 18:01 c/o CONTRERAS-->acetaminophen 650mg stat 02/07/18 19:08 Neg dopplers bilateral Labs WNL pt resting well gabapentin 300 mg po stat 02/07/18 19:30 dispo home with gabapentin and advised to see PMD for diabetic neuropathy and or MRI for LS - Lab Interpretations Lab Results: 02/07/18 17:03 02/07/18 17:03 Lab Results 02/07/18 18:00: Urine Color Yellow, Urine Appearance Clear, Urine pH 6.5, Ur Specific [place] 1.010, Urine Protein Negative, Urine Glucose (UA) Negative, Urine Ketones Negative, Urine Blood Negative, Urine Nitrate Negative, Urine Bilirubin Negative, Urine Urobilinogen 0.2, Ur Leukocyte Esterase Negative 02/07/18 17:03: Sodium 142, Potassium 3.9, Chloride 104, Carbon Dioxide 27, Anion Gap 15, BUN 12, Creatinine 0.6 L, Est GFR ( Amer) > 60, Est GFR ( Non-Af Amer) > 60, Random Glucose 94, Calcium 8.5, Total Bilirubin 0.6, AST 30, ALT 30, Alkaline Phosphatase 96, Total Protein 7.6, Albumin 4.0, Globulin 3.6, Albumin/Globulin Ratio 1.1 02/07/18 17:03: WBC 9.5 D, RBC 4.93, Hgb 14.2, Hct 41.9 L, MCV 85.0, MCH 28.8, MCHC 33.9, RDW 13.4, Plt Count 216, MPV 10.6, Gran % 63.8, Lymph % (Auto) 23.8, [place] % (Auto) 10.4 H, Eos % (Auto) 1.8, Baso % (Auto) 0.2, Gran # 6.08, Lymph # (Auto) 2.3, [place] # (Auto) 1.0 H, Eos # (Auto) 0.2, Baso # (Auto) 0.02 - RAD Interpretation Radiology Orders: 02/07/18 16:29 DUPLEX LOWER EXTRM VEIN BILAT [US] Stat - Medication Orders Current Medication Orders: Discontinued Medications Acetaminophen (Tylenol 325mg Tab) 650 mg PO STAT STA Stop: 02/07/18 17:54 Last Admin: 02/07/18 19:44 Dose: 650 mg MAR Pain/Vitals Document 02/07/18 19:44 LA (Rec: 02/07/18 19:45 LA [id number]) Pain Reassessment Is This A Pain ReAssessment? No Sleep Is patient sleeping during reassessment? No Presence of Pain Presence of Pain Yes Pain Scale Used Pain Scale Used Numeric Location Left, Right or Bilateral Bilateral Upper or Lower Lower Pain Location Body Site Foot Gabapentin (Neurontin) 300 mg PO STAT SWATI PRN Reason: Protocol Stop: 02/07/18 19:16 Last Admin: 02/07/18 19:44 Dose: 300 mg Disposition/Present on Arrival - Present on Arrival Any Indicators Present on Arrival: Yes History of DVT/PE: Yes History of Uncontrolled Diabetes: No Urinary Catheter: No History of Decub. Ulcer: No History Surgical Site Infection Following: None - Disposition Have Diagnosis and Disposition been Completed?: Yes Diagnosis: Diabetic neuropathy associated with type 2 diabetes mellitus Disposition: HOME/ ROUTINE Disposition Time: 19:27 Patient Plan: Discharge Condition: GOOD Discharge Instructions (ExitCare): Diabetic Neuropathy (DC), Foot Care for Diabetics Print Language: ALGERIAN Additional Instructions: DARCIE MEDRANO, thank you for letting us take care of you today. Your provider was Mykel Beatty DO and GRADY Nassar and you were treated for PAIN IN BOTH LEGS. The emergency medical care you received today was directed at your acute symptoms. If you were prescribed any medication, please fill it and take as directed. It may take several days for your symptoms to resolve. Return to the Emergency Department if your symptoms worsen, do not improve, or if you have any other problems. PLEASE SEE YOUR DOCTOR FOR FOLLOW UP CARE IN THE NEXT 2 DAYS Please contact your doctor or call one of the physicians/clinics you have been referred to that are listed on the Patient Visit Information form that is included in your discharge packet. Bring any paperwork you were given at discharge with you along with any medications you are taking to your follow up visit. Our treatment cannot replace ongoing medical care by a primary care provider outside of the emergency department. Thank you for allowing the [facility] team to be part of your care today. If you had an X-Ray or CT scan: A Radiologist will review the ED reading if any change in treatment is needed we will contact you. If you had a blood, urine, or wound culture: It will take several days for the results, if any change in treatment is needed we will contact you. Prescriptions: Gabapentin [Neurontin] 300 mg PO TID 5 Days #15 cap Referrals: Anna Romero DO [Primary Care Provider] - Follow up with primary Forms: [email or web address] (Cam[place]onian)
[2018-02-07 18:12] LABS: PH,URINE 6.5 (4.7-8.0); URINE BILIRUBIN NEGATIVE (NEGATIVE); URINE BLOOD NEGATIVE (NEGATIVE); URINE GLUCOSE (UA) NEGATIVE (NEGATIVE); URINE LEUKOCYTE ESTERASE NEGATIVE Leu/uL (NEGATIVE); URINE PROTEIN NEGATIVE mg/dL (<30 mg/dL); URINE UROBILINOGEN 0.2 E.U./dL (<1 E.U./dL)
[2018-02-07 18:20] LABS: URINE APPEARANCE CLEAR (CLEAR); URINE COLOR YELLOW (YELLOW)
--- NOTE | 2018-02-07 18:56 | US ---
HISTORY: Leg pain and swelling. Evaluate for DVT PHYSICIAN(S): Trell Finney MD. TECHNIQUE: Duplex sonography and color-flow Doppler with graded compression were used to evaluate the deep venous systems of both lower extremities. The exam is very limited by body habitus and edema FINDINGS: The visualized deep venous systems of both lower extremities are sonographically normal and compressible. Normal wave forms and augmentation are seen. There is no sonographic evidence for deep venous thrombosis in the visualized segments of both lower extremities. IMPRESSION: No sonographic evidence for deep venous thrombosis in the visualized segments of both lower extremities. Very limited exam.
[2018-02-07 20:29] VITALS: BP 156/94; PULSE 70; TEMP 97.7; O2SAT 96
== END 2018-02-07 20:07 | disposition home or self-care (01) ==
LOC: ED 15:17
DX: E11.40 Type 2 diabetes mellitus with diabetic neuropathy, unspecified (principal); I25.2 Old myocardial infarction; I11.0 Hypertensive heart disease with heart failure; I50.9 Heart failure, unspecified; Z86.718 Personal history of other venous thrombosis and embolism; Z86.73 Personal history of transient ischemic attack (TIA), and cerebral infarction without residual deficits